=== PATIENT | male | born 1935 | race African-American/Black ===

== ENCOUNTER 2025-03-04 21:30 | Inpatient (IN) | payer MEDICARE, BC, OTHER ==
[~2025-03-04] VITALS: Ht 172.7 cm; Wt 71.4 kg
[2025-03-04 22:18] LABS: PLATELET COUNT (AUTO) 143 K/uL (150-450); RED BLOOD CELL COUNT(AUTO) 2.03 MIL/uL (4.50-5.90); RED CELL DISTRIBUTION WIDTH 17.8 % (11.5-14.5); WHITE BLOOD COUNT (AUTO) 10.4 K/uL (4.5-11.0)
[2025-03-04] MEDS: NOREPINEPHRINE 8 MG/0.9 % NACL 250 ML IV PRN (22:20)
[2025-03-04] MEDS: PIPERACILLIN/TAZO 3.375 GM/D5W 50 ML IV ONE (22:20)
[2025-03-04 22:23] LABS: CALCIUM, TOTAL 7.1 mg/dL (8.8-10.5); CREATININE 2.51 mg/dL (0.60-1.30); GLOMERULAR FILTR. RATE CALC 30 mL/min (>60); GLUCOSE,RANDOM 220 mg/dL (70-110); SODIUM SERUM 142 mmol/L (136-145); UREA NITROGEN, BLOOD 76 mg/dL (7-18)
[2025-03-04 22:29] LABS: ASPARTATE AMINOTRANSFERASE 45 U/L (15-37); TOTAL PROTEIN, SERUM 4.3 g/dL (6.4-8.2)
[2025-03-04 22:31] LABS: LACTIC ACID 1.9 mmol/L (0.4-2.0)
[2025-03-04 22:34] LABS: TROPONIN I-HIGH SENSITIVITY 17 ng/L (<76)
[2025-03-04] MEDS: SODIUM CHLORIDE 0.9% 3,000 ML IV ONE (22:39)
[2025-03-04 22:40] LABS: PLATELET COUNT (AUTO) 148 K/uL (150-450); RED BLOOD CELL COUNT(AUTO) 2.03 MIL/uL (4.50-5.90); RED CELL DISTRIBUTION WIDTH 18.3 % (11.5-14.5); WHITE BLOOD COUNT (AUTO) 11.7 K/uL (4.5-11.0)
[2025-03-04 22:43] LABS: BAND NEUTROPHILS % (MANUAL) 6 % (0-5); LYMPHOCYTES % (MANUAL) 14 % (22-44); MONOCYTES % (MANUAL) 11 % (2-9); SEGMENTED NEUTROPHILS % 69 % (40-70)
[2025-03-04 22:45] LABS: RBC MORPHOLOGY COMMENT NORMAL RBC MORPH
[2025-03-04] MEDS ORDERED: ONDANSETRON HCL 4 MG/2 ML VIAL IVP PRN (23:00)
[2025-03-04 23:19] LABS: APPEARANCE,URINE HAZY (CLEAR); GLUCOSE, URINE (UA) NEGATIVE (NEGATIVE); LEUKOCYTE ESTERASE ,URINE LARGE (NEGATIVE); NITRATE,URINE NEGATIVE (NEGATIVE); OCCULT BLOOD,URINE NEGATIVE (NEGATIVE); SPECIFIC GRAVITIY, URINE 1.018 (1.003-1.030)
[2025-03-04 23:29] LABS: % IRON SATURATION 54.3 % (30-44); IRON, SERUM 44.0 mcg/dL (50-175)
[2025-03-04 23:57] LABS: SQUAMOUS EPITHELIAL CELL,UR Few /LPF (None Seen)
[2025-03-05] VITALS (17 sets, daily range): BP systolic 93–128; BP diastolic 40–66; PULSE 61–92; RESP 18–28; TEMP 93.1–97.4; O2SAT 67–99
[2025-03-05] MEDS ORDERED: FLUO15CR41 TP (04:43)
[2025-03-05] MEDS ORDERED: HYDR-4808 PO (04:43)
[2025-03-05] MEDS ORDERED: FLUT15.812 NASAL (04:43)
[2025-03-05] MEDS ORDERED: METO-325 PO (04:43)
[2025-03-05] MEDS ORDERED: FINA-27 PO (04:43)
[2025-03-05] MEDS ORDERED: ISOS60TA77 PO (04:43)
[2025-03-05] MEDS ORDERED: ATOR40TA28 PO (04:43)
[2025-03-05] MEDS ORDERED: SITA25 PO (04:43)
[2025-03-05] MEDS ORDERED: CETI10TA77 PO (04:43)
[2025-03-05] MEDS ORDERED: FEBU40T PO (04:43)
[2025-03-05] MEDS ORDERED: HYDR50TA36 PO (04:43)
[2025-03-05] MEDS ORDERED: ALBU18HF12 IH (04:43)
[2025-03-05] MEDS ORDERED: TAMS0.4C94 PO (04:44)
[2025-03-05] MEDS ORDERED: TORS20TA5 PO (04:44)
[2025-03-05] MEDS ORDERED: DEXTROSE 50%-WATER 25 GM/50 ML SYRINGE IVP PRN (04:45)
[2025-03-05] MEDS: PANTOPRAZOLE SODIUM 80 MG in SODIUM CHLORIDE 0.9% 100 ML IV SCH (05:51)
[2025-03-05] MEDS: PANTOPRAZOLE SODIUM 40 MG/VIAL IVP ONE (05:51)
[2025-03-05] MEDS: CefTRIAXone 1 GM/DEXTROSE 50 ML IV SCH (05:51)
[2025-03-05] MEDS: AZITHROMYCIN 500 MG/NS 250 ML IV SCH (06:37)
[2025-03-05 07:00] LABS: PLATELET COUNT (AUTO) 104 K/uL (150-450); RED BLOOD CELL COUNT(AUTO) 3.49 MIL/uL (4.50-5.90); RED CELL DISTRIBUTION WIDTH 18.9 % (11.5-14.5); WHITE BLOOD COUNT (AUTO) 11.0 K/uL (4.5-11.0)
[2025-03-05 07:08] LABS: CALCIUM, TOTAL 7.1 mg/dL (8.8-10.5); CREATININE 2.68 mg/dL (0.60-1.30); GLOMERULAR FILTR. RATE CALC 27.0 mL/min (>60); GLUCOSE,RANDOM 204.0 mg/dL (70-110); SODIUM SERUM 141.0 mmol/L (136-145); UREA NITROGEN, BLOOD 80.0 mg/dL (7-18)
[2025-03-05] MEDS: TORSEMIDE 20 MG TABLET PO SCH ×2 (08:33→21:45)
[2025-03-05] MEDS: DOCUSATE SODIUM 100 MG CAPSULE PO SCH (08:33)
[2025-03-05] MEDS: ALBUMIN HUMAN 5%-12.5GM/250ML 250 ML IV ONE (11:21)
[2025-03-05] MEDS: NOREPINEPHRINE 8 MG/0.9 % NACL 250 ML IV PRN (12:34)
[2025-03-05 17:30] LABS: GLUCOMETER DEV NAME(LOC) ICUN.7; GLUCOSE,POINT OF CARE 114 MG/DL (70-110)
[2025-03-05] MEDS: TAMSULOSIN HCL 0.4 MG CAPSULE PO SCH (21:44)
[2025-03-05 22:30] LABS: GLUCOMETER DEV NAME(LOC) ICU.S7; GLUCOSE,POINT OF CARE 125 MG/DL (70-110)
[2025-03-05] MEDS: CHLORHEXIDINE GLUCONATE 2% TOWELETTE [2'S/6'S] TP SCH (23:19)
[2025-03-06] VITALS (13 sets, daily range): BP systolic 99–138; BP diastolic 39–65; PULSE 61–93; RESP 11–31; TEMP 96–97.8; O2SAT 75–100
[2025-03-06 00:35] LABS: GLUCOMETER DEV NAME(LOC) ICU.S7; GLUCOSE,POINT OF CARE 123 MG/DL (70-110)
[2025-03-06] MEDS ORDERED: SODIUM CHLORIDE 0.9% 250 ML IV ONE (04:56)
[2025-03-06 06:21] LABS: GLUCOMETER DEV NAME(LOC) ICUN.7; GLUCOSE,POINT OF CARE 135 MG/DL (70-110)
[2025-03-06 06:29] LABS: PLATELET COUNT (AUTO) 129 K/uL (150-450); RED BLOOD CELL COUNT(AUTO) 3.37 MIL/uL (4.50-5.90); RED CELL DISTRIBUTION WIDTH 19.6 % (11.5-14.5); WHITE BLOOD COUNT (AUTO) 10.7 K/uL (4.5-11.0)
[2025-03-06 06:40] LABS: ASPARTATE AMINOTRANSFERASE 30.0 U/L (15-37); CALCIUM, TOTAL 7.6 mg/dL (8.8-10.5); CREATININE 3.49 mg/dL (0.60-1.30); GLOMERULAR FILTR. RATE CALC 20.0 mL/min (>60); GLUCOSE,RANDOM 131.0 mg/dL (70-110); SODIUM SERUM 142.0 mmol/L (136-145); TOTAL PROTEIN, SERUM 5.6 g/dL (6.4-8.2); UREA NITROGEN, BLOOD 84.0 mg/dL (7-18)
[2025-03-06 07:34] LABS: ABG BASE EXCESS -4.1 mmol/L (-2.0-3.0); ABG CARBOXYHEMOGLOBIN 0.4 % (0.5-1.5); ABG HCO3 19.9 mmol/L (21.0-28.0); ABG METHEMOGLOBIN 0.3 % (0.0-1.5); ABG OXYGEN CONTENT 15.8 mL/dL (15.0-23.0); ABG OXYGEN SATURATION 99.5 % (94.0-98.0); ABG OXYHEMOGLOBIN 98.8 % (94.0-98.0); ABG TOTAL HEMOGLOBIN 10.6 G/dL (13.5-17.5); FRACTIONATED INSPIRED OXYGEN 100.0 % (21-100.0); SOURCE, BLOOD GAS ARTERIAL; TEMPERATURE, FAHRENHEIT, BG 96.1 FAHREN (96.0-98.6)
[2025-03-06] MEDS: FUROSEMIDE 20 MG/2 ML VIAL IVP ONE (08:03)
[2025-03-06 09:14] LABS: ABG A-A DIFF O2 239.1 mmHg (10-20.0); ABG PCO2 92 mmHg (32.0-48.0); ABG PH 7.065 (7.350-7.450); ALLEN TEST, BLOOD GAS Positive; FLOW, BLOOD GAS 15.00 L/min (0.00-15.00); O2 DEVICE,BLOOD GAS NON REBREATHER (ROOM AIR); PO2, ARTERIAL BG 385.4 mmHg (83.0-108.0); SITE, BLOOD GAS LFT RADIAL
[2025-03-06] MEDS ORDERED: LIDOCAINE 1%/EPI 1:200,000/PF 30 ML VIAL ONE (10:27)
[2025-03-06 11:36] LABS: LACTATE DEHYDROGENASE 326.0 U/L (85-227)
[2025-03-06 11:38] LABS: SPECIMENTYPE,BODY FLUID PLV
[2025-03-06 13:24] LABS: APPEARANCE,SPUN,BODY FLUID HAZY (CLEAR); APPEARANCE,UNSPUN,BODY FLUID BLOODY (CLEAR); COLOR,BODY FLUID RED (LT YELLOW); TOTAL VOLUME,BODY FLUID 20 mL; WBC, BODY FLUID 69 /cu. mm.
[2025-03-06 13:26] LABS: GLUCOMETER DEV NAME(LOC) ICU.S7; GLUCOSE,POINT OF CARE 128 MG/DL (70-110)
[2025-03-06 13:28] LABS: BASOPHILS,BODY FLUID 0 % (1-5); EOSINOPHILS,BF (ANAL) 0 %; LYMPHOCYTES,BODY FLUID 33 %; MONOCYTES,BODY FLUID 4 %; NEUTROPHILS,BODY FLUID 62 %; PH, BODY FLUID 8.0 (6.8-7.6)
[2025-03-06] MEDS: FUROSEMIDE 40 MG/4 ML VIAL IVP SCH (15:05)
[2025-03-06] MEDS: ACETAMINOPHEN 1000 MG/ISO-OSM 100 ML IV ONE (15:06)
[2025-03-06] MEDS ORDERED: FUROSEMIDE 100 MG/10 ML VIAL IVP SCH (16:00)
[2025-03-06 17:06] LABS: ABG BASE EXCESS 3.3 mmol/L (-2.0-3.0); ABG CARBOXYHEMOGLOBIN 0.1 % (0.5-1.5); ABG HCO3 26.2 mmol/L (21.0-28.0); ABG METHEMOGLOBIN 0.0 % (0.0-1.5); ABG OXYGEN CONTENT 14.5 mL/dL (15.0-23.0); ABG OXYGEN SATURATION 99.2 % (94.0-98.0); ABG OXYHEMOGLOBIN 99.1 % (94.0-98.0); ABG TOTAL HEMOGLOBIN 10.1 G/dL (13.5-17.5); FRACTIONATED INSPIRED OXYGEN 60.0 % (21-100.0); PO2, ARTERIAL BG 196.7 mmHg (83.0-108.0); SOURCE, BLOOD GAS ARTERIAL; TEMPERATURE, FAHRENHEIT, BG 96.5 FAHREN (96.0-98.6)
[2025-03-06 17:07] LABS: ABG A-A DIFF O2 150.0 mmHg (10-20.0); ABG PCO2 75 mmHg (32.0-48.0); ABG PH 7.227 (7.350-7.450); ALLEN TEST, BLOOD GAS Positive; O2 DEVICE,BLOOD GAS BIPAP (ROOM AIR); SET RATE, BG 20.0 min.; SITE, BLOOD GAS LFT RADIAL
[2025-03-06 17:08] LABS: INSPIRATORY TIME, BG 0.9 SEC; PATIENT RATE, BG 20.0 min.; SPONTANEOUS VT, BG 275 ml
[2025-03-06 18:40] LABS: GLUCOMETER DEV NAME(LOC) ICU.S7; GLUCOSE,POINT OF CARE 132 MG/DL (70-110)
[2025-03-07] VITALS (9 sets, daily range): BP systolic 109–127; BP diastolic 43–68; PULSE 61–94; RESP 12–27; TEMP 97.9–99.3; O2SAT 99–100
[2025-03-07] MEDS ORDERED: HEPARIN SODIUM,PORCINE 5,000 UNITS/ML VIAL SQ SCH
[2025-03-07 00:31] LABS: GLUCOMETER DEV NAME(LOC) ICUN.7; GLUCOSE,POINT OF CARE 115 MG/DL (70-110)
[2025-03-07 06:26] LABS: PLATELET COUNT (AUTO) 114 K/uL (150-450); RED BLOOD CELL COUNT(AUTO) 2.87 MIL/uL (4.50-5.90); RED CELL DISTRIBUTION WIDTH 18.7 % (11.5-14.5); WHITE BLOOD COUNT (AUTO) 8.0 K/uL (4.5-11.0)
[2025-03-07 07:09] LABS: TROPONIN I-HIGH SENSITIVITY 141 ng/L (<76)
[2025-03-07 08:00] LABS: ASPARTATE AMINOTRANSFERASE 25.0 U/L (15-37); CALCIUM, TOTAL 7.6 mg/dL (8.8-10.5); CREATININE 4.38 mg/dL (0.60-1.30); GLOMERULAR FILTR. RATE CALC 16.0 mL/min (>60); GLUCOSE,RANDOM 89.0 mg/dL (70-110); SODIUM SERUM 142.0 mmol/L (136-145); TOTAL PROTEIN, SERUM 4.8 g/dL (6.4-8.2); UREA NITROGEN, BLOOD 88.0 mg/dL (7-18)
[2025-03-07 08:28] LABS: ABG BASE EXCESS 4.4 mmol/L (-2.0-3.0); ABG CARBOXYHEMOGLOBIN 0.6 % (0.5-1.5); ABG HCO3 27.6 mmol/L (21.0-28.0); ABG METHEMOGLOBIN 0.3 % (0.0-1.5); ABG OXYGEN CONTENT 12.6 mL/dL (15.0-23.0); ABG OXYGEN SATURATION 99.1 % (94.0-98.0); ABG OXYHEMOGLOBIN 98.2 % (94.0-98.0); ABG PCO2 65 mmHg (32.0-48.0); ABG PH 7.295 (7.350-7.450); ABG TOTAL HEMOGLOBIN 8.9 G/dL (13.5-17.5); FRACTIONATED INSPIRED OXYGEN 40.0 % (21-100.0); PO2, ARTERIAL BG 148.5 mmHg (83.0-108.0); SOURCE, BLOOD GAS ARTERIAL; TEMPERATURE, FAHRENHEIT, BG 98.6 FAHREN (96.0-98.6)
[2025-03-07 08:29] LABS: ABG A-A DIFF O2 62.0 mmHg (10-20.0); ALLEN TEST, BLOOD GAS Positive; INSPIRATORY TIME, BG 0.9 SEC; O2 DEVICE,BLOOD GAS BIPAP (ROOM AIR); PATIENT RATE, BG 20.0 min.; SET RATE, BG 20.0 min.; SITE, BLOOD GAS LFT RADIAL; SPONTANEOUS VT, BG 450 ml
[2025-03-07] MEDS: ETHYL ALCOHOL 62% ANTISEPTIC NASAL SANITIZER 0.6 ML AMPUL NASAL SCH (08:29)
[2025-03-07] MEDS: FUROSEMIDE 40 MG/4 ML VIAL IVP SCH (08:53)
[2025-03-07 10:49] LABS: ABG A-A DIFF O2 18.0 mmHg (10-20.0); ABG BASE EXCESS 2.1 mmol/L (-2.0-3.0); ABG CARBOXYHEMOGLOBIN 0.4 % (0.5-1.5); ABG HCO3 25.8 mmol/L (21.0-28.0); ABG METHEMOGLOBIN 0.0 % (0.0-1.5); ABG OXYGEN CONTENT 12.5 mL/dL (15.0-23.0); ABG OXYGEN SATURATION 99.3 % (94.0-98.0); ABG OXYHEMOGLOBIN 98.9 % (94.0-98.0); ABG PCO2 62 mmHg (32.0-48.0); ABG PH 7.286 (7.350-7.450); ABG TOTAL HEMOGLOBIN 8.7 G/dL (13.5-17.5); ALLEN TEST, BLOOD GAS Positive; FLOW, BLOOD GAS 4.00 L/min (0.00-15.00); FRACTIONATED INSPIRED OXYGEN 36.0 % (21-100.0); O2 DEVICE,BLOOD GAS CANNULA (ROOM AIR); PO2, ARTERIAL BG 167.1 mmHg (83.0-108.0); SITE, BLOOD GAS LFT RADIAL; SOURCE, BLOOD GAS ARTERIAL; TEMPERATURE, FAHRENHEIT, BG 98.6 FAHREN (96.0-98.6)
[2025-03-07 13:28] LABS: ABG A-A DIFF O2 37.2 mmHg (10-20.0); ABG BASE EXCESS 3.0 mmol/L (-2.0-3.0); ABG CARBOXYHEMOGLOBIN 0.5 % (0.5-1.5); ABG HCO3 26.6 mmol/L (21.0-28.0); ABG METHEMOGLOBIN 0.1 % (0.0-1.5); ABG OXYGEN CONTENT 11.3 mL/dL (15.0-23.0); ABG OXYGEN SATURATION 96.4 % (94.0-98.0); ABG OXYHEMOGLOBIN 95.8 % (94.0-98.0); ABG PCO2 60 mmHg (32.0-48.0); ABG PH 7.307 (7.350-7.450); ABG TOTAL HEMOGLOBIN 8.3 G/dL (13.5-17.5); ALLEN TEST, BLOOD GAS Positive; FLOW, BLOOD GAS 2.00 L/min (0.00-15.00); FRACTIONATED INSPIRED OXYGEN 28.0 % (21-100.0); O2 DEVICE,BLOOD GAS CANNULA (ROOM AIR); PO2, ARTERIAL BG 91.0 mmHg (83.0-108.0); SITE, BLOOD GAS LFT RADIAL; SOURCE, BLOOD GAS ARTERIAL; TEMPERATURE, FAHRENHEIT, BG 99.6 FAHREN (96.0-98.6)
[2025-03-07 13:36] LABS: GLUCOMETER DEV NAME(LOC) ICUN.7; GLUCOSE,POINT OF CARE 63 MG/DL (70-110)
[2025-03-07 14:07] LABS: GLUCOSE, BODY FLUID,REF 55.0 mg/dL; LDH,BODY FLUID,REF 167.0 IU/L; TOTAL PROTEIN,BODY FLUID,REF 7.7 g/dL
[2025-03-07 18:15] LABS: GLUCOMETER DEV NAME(LOC) ICUN.7; GLUCOSE,POINT OF CARE 113 MG/DL (70-110)
[2025-03-08] VITALS (9 sets, daily range): BP systolic 127–157; BP diastolic 43–64; PULSE 61–74; RESP 16–28; TEMP 97.3–99.3; O2SAT 96–100
[2025-03-08 04:41] LABS: GLUCOMETER DEV NAME(LOC) ICUN.7; GLUCOSE,POINT OF CARE 74 MG/DL (70-110)
[2025-03-08 06:50] LABS: GLUCOMETER DEV NAME(LOC) ICUN.7; GLUCOSE,POINT OF CARE 124 MG/DL (70-110)
[2025-03-08] MEDS: ACETAMINOPHEN 325 MG TABLET PO PRN (08:35)
[2025-03-08 09:28] LABS: PLATELET COUNT (AUTO) 127 K/uL (150-450); RED BLOOD CELL COUNT(AUTO) 3.18 MIL/uL (4.50-5.90); RED CELL DISTRIBUTION WIDTH 18.4 % (11.5-14.5); WHITE BLOOD COUNT (AUTO) 9.4 K/uL (4.5-11.0)
[2025-03-08 09:29] LABS: CALCIUM, TOTAL 8.0 mg/dL (8.8-10.5); CREATININE 4.98 mg/dL (0.60-1.30); GLOMERULAR FILTR. RATE CALC 13.0 mL/min (>60); GLUCOSE,RANDOM 98.0 mg/dL (70-110); SODIUM SERUM 141.0 mmol/L (136-145); UREA NITROGEN, BLOOD 94.0 mg/dL (7-18)
[2025-03-08 10:37] LABS: BAND NEUTROPHILS % (MANUAL) 3 % (0-5); LYMPHOCYTES % (MANUAL) 23 % (22-44); RBC MORPHOLOGY COMMENT NORMAL RBC MORPH; SEGMENTED NEUTROPHILS % 74 % (40-70)
[2025-03-08 11:56] LABS: GLUCOMETER DEV NAME(LOC) ICU.S7; GLUCOSE,POINT OF CARE 149 MG/DL (70-110)
[2025-03-08] MEDS: INSULIN LISPRO 100 UNITS/ML SQ PRN (12:29)
[2025-03-08] MEDS: *CLINICAL-LEVOFLOXACIN IVPB DOSING CLINICAL ONE (14:53)
[2025-03-08] MEDS ORDERED: SODIUM CHLORIDE 0.9% 250 ML IV ONE (16:24)
[2025-03-08] MEDS: LEVOFLOXACIN 750 MG/D5% WATER 150 ML IV ONE (16:38)
[2025-03-08 18:05] LABS: GLUCOMETER DEV NAME(LOC) ICUN.7; GLUCOSE,POINT OF CARE 105 MG/DL (70-110)
[2025-03-09] VITALS (14 sets, daily range): BP systolic 99–175; BP diastolic 50–69; PULSE 65–85; RESP 18–27; TEMP 97.7–100.3; O2SAT 97–100
[2025-03-09 00:25] LABS: GLUCOMETER DEV NAME(LOC) ICUN.7; GLUCOSE,POINT OF CARE 94 MG/DL (70-110)
[2025-03-09 05:55] LABS: GLUCOMETER DEV NAME(LOC) ICU.S7; GLUCOSE,POINT OF CARE 86 MG/DL (70-110)
[2025-03-09 06:23] LABS: CALCIUM, TOTAL 7.6 mg/dL (8.8-10.5); CREATININE 5.02 mg/dL (0.60-1.30); GLOMERULAR FILTR. RATE CALC 13.0 mL/min (>60); GLUCOSE,RANDOM 88.0 mg/dL (70-110); SODIUM SERUM 139.0 mmol/L (136-145); UREA NITROGEN, BLOOD 94.0 mg/dL (7-18)
[2025-03-09 06:27] LABS: PLATELET COUNT (AUTO) 125 K/uL (150-450); RED BLOOD CELL COUNT(AUTO) 2.78 MIL/uL (4.50-5.90); RED CELL DISTRIBUTION WIDTH 17.9 % (11.5-14.5); WHITE BLOOD COUNT (AUTO) 8.8 K/uL (4.5-11.0)
[2025-03-09] MEDS: LACTULOSE 20 GM/30 ML SOLUTION UDCUP PO PRN (08:43)
[2025-03-09] MEDS ORDERED: GuaiFENesin/D-METHORPHAN [SUGAR-FREE] 200-20MG/10 ML SYRUP UDCUP PO PRN (10:30)
[2025-03-09] MEDS: EPOETIN ALFA 10,000 UNITS/ML VIAL SQ ONE (12:02)
[2025-03-09] MEDS: BENZONATATE 100 MG CAPSULE PO PRN (19:29)
[2025-03-09] MEDS: MELATONIN 5 MG TABLET PO PRN (20:44)
[2025-03-10] VITALS (14 sets, daily range): BP systolic 123–158; BP diastolic 53–70; PULSE 60–84; RESP 16–24; TEMP 97.5–98.1; O2SAT 97–100
[2025-03-10 05:40] LABS: GLUCOMETER DEV NAME(LOC) 5N.1D; GLUCOSE,POINT OF CARE 177 MG/DL (70-110)
[2025-03-10 05:40] LABS: GLUCOMETER DEV NAME(LOC) 5N.1D; GLUCOSE,POINT OF CARE 124 MG/DL (70-110)
[2025-03-10 06:44] LABS: PLATELET COUNT (AUTO) 132 K/uL (150-450); RED BLOOD CELL COUNT(AUTO) 3.09 MIL/uL (4.50-5.90); RED CELL DISTRIBUTION WIDTH 18.7 % (11.5-14.5); WHITE BLOOD COUNT (AUTO) 8.0 K/uL (4.5-11.0)
[2025-03-10 07:06] LABS: CALCIUM, TOTAL 7.8 mg/dL (8.8-10.5); CREATININE 5.22 mg/dL (0.60-1.30); GLOMERULAR FILTR. RATE CALC 13.0 mL/min (>60); GLUCOSE,RANDOM 99.0 mg/dL (70-110); SODIUM SERUM 139.0 mmol/L (136-145); UREA NITROGEN, BLOOD 97.0 mg/dL (7-18)
[2025-03-10 08:26] LABS: GLUCOMETER DEV NAME(LOC) 5S.1E; GLUCOSE,POINT OF CARE 113 MG/DL (70-110)
[2025-03-10 08:26] LABS: GLUCOMETER DEV NAME(LOC) 5S.1E; GLUCOSE,POINT OF CARE 107 MG/DL (70-110)
[2025-03-10 12:30] LABS: GLUCOMETER DEV NAME(LOC) 5S.1E; GLUCOSE,POINT OF CARE 122 MG/DL (70-110)
[2025-03-10] MEDS: LEVOFLOXACIN 500 MG/D5% WATER 100 ML IV SCH (16:07)
[2025-03-10 17:40] LABS: CREATININE 5.26 mg/dL (0.60-1.30); GLOMERULAR FILTR. RATE CALC 13.0 mL/min (>60); UREA NITROGEN, BLOOD 98.0 mg/dL (7-18)
[2025-03-10 18:11] LABS: GLUCOMETER DEV NAME(LOC) 5S.1E; GLUCOSE,POINT OF CARE 105 MG/DL (70-110)
[2025-03-11 00:02] VITALS: BP 153/83; PULSE 63; RESP 18; TEMP 98.1; O2SAT 95
[2025-03-11 00:05] LABS: GLUCOMETER DEV NAME(LOC) 5N.1D; GLUCOSE,POINT OF CARE 118 MG/DL (70-110)
[2025-03-11 00:05] LABS: GLUCOMETER DEV NAME(LOC) 5N.1D; GLUCOSE,POINT OF CARE 103 MG/DL (70-110)
[2025-03-11 02:31] VITALS: PULSE 68; RESP 19; O2SAT 98
[2025-03-11 04:39] VITALS: BP 160/51; PULSE 75; RESP 17; TEMP 97.5; O2SAT 100
[2025-03-11] MEDS: METOPROLOL SUCCINATE 50 MG ER TABLET PO SCH (06:34)
[2025-03-11 07:27] LABS: PLATELET COUNT (AUTO) 127 K/uL (150-450); RED BLOOD CELL COUNT(AUTO) 3.21 MIL/uL (4.50-5.90); RED CELL DISTRIBUTION WIDTH 18.8 % (11.5-14.5); WHITE BLOOD COUNT (AUTO) 7.3 K/uL (4.5-11.0)
[2025-03-11 07:34] LABS: CALCIUM, TOTAL 8.0 mg/dL (8.8-10.5); CREATININE 5.1 mg/dL (0.60-1.30); GLOMERULAR FILTR. RATE CALC 13.0 mL/min (>60); GLUCOSE,RANDOM 89.0 mg/dL (70-110); SODIUM SERUM 139.0 mmol/L (136-145); UREA NITROGEN, BLOOD 95.0 mg/dL (7-18)
[2025-03-11 07:52] VITALS: BP 146/65; PULSE 74; RESP 18; TEMP 98; O2SAT 97
[2025-03-11 08:01] LABS: PHOSPHORUS 5.2 mg/dL (2.5-4.9)
[2025-03-11] MEDS: FINASTERIDE 5 MG TABLET PO SCH (08:43)
[2025-03-11] MEDS: ATORVASTATIN CALCIUM 40 MG TABLET PO SCH (08:44)
[2025-03-11 12:00] VITALS: BP 163/64; PULSE 80; RESP 19; TEMP 97.9; O2SAT 100
[2025-03-11 16:00] VITALS: BP 157/65; PULSE 69; RESP 18; TEMP 97.5; O2SAT 98
[2025-03-11 20:11] LABS: GLUCOMETER DEV NAME(LOC) 5N.1D; GLUCOSE,POINT OF CARE 99 MG/DL (70-110)
[2025-03-11 20:11] LABS: GLUCOMETER DEV NAME(LOC) 5S.1E; GLUCOSE,POINT OF CARE 123 MG/DL (70-110)
== END 2025-03-11 17:45 | disposition short-term general hospital (02) | DRG 871 ==
LOC: EMS 21:30 → EDH 22:59 → ICU 03-05 07:59 → 5S 03-09 06:30
PROVIDERS: ADMIT Internal Medicine; ATTEND Internal Medicine
PROC: 30233N1 Transfusion of Nonautologous Red Blood Cells into Peripheral Vein, Percutaneous Approach (ICD-10-PCS; 2025-03-04)
PROC: 0W9B30Z Drainage of Left Pleural Cavity with Drainage Device, Percutaneous Approach (ICD-10-PCS; principal; 2025-03-06)
PROC: 0W9B3ZZ Drainage of Left Pleural Cavity, Percutaneous Approach (ICD-10-PCS; 2025-03-06)
PROC: 5A09357 Assistance with Respiratory Ventilation, Less than 24 Consecutive Hours, Continuous Positive Airway Pressure (ICD-10-PCS; 2025-03-06)
PROC: 5A09357 Assistance with Respiratory Ventilation, Less than 24 Consecutive Hours, Continuous Positive Airway Pressure (ICD-10-PCS; 2025-03-07)
PROC: 5A09357 Assistance with Respiratory Ventilation, Less than 24 Consecutive Hours, Continuous Positive Airway Pressure (ICD-10-PCS; 2025-03-09)
PROC: 5A09357 Assistance with Respiratory Ventilation, Less than 24 Consecutive Hours, Continuous Positive Airway Pressure (ICD-10-PCS; 2025-03-10)
DX: A41.9 Sepsis, unspecified organism (principal); G93.41 Metabolic encephalopathy; J96.21 Acute and chronic respiratory failure with hypoxia; J96.22 Acute and chronic respiratory failure with hypercapnia; N17.0 Acute kidney failure with tubular necrosis; R65.21 Severe sepsis with septic shock; J94.2 Hemothorax; R57.9 Shock, unspecified; J90 Pleural effusion, not elsewhere classified; C85.90 Non-Hodgkin lymphoma, unspecified, unspecified site; N39.0 Urinary tract infection, site not specified; I44.2 Atrioventricular block, complete; N18.4 Chronic kidney disease, stage 4 (severe); I13.0 Hypertensive heart and chronic kidney disease with heart failure and stage 1 through stage 4 chronic kidney disease, or unspecified chronic kidney disease; D63.1 Anemia in chronic kidney disease; E11.22 Type 2 diabetes mellitus with diabetic chronic kidney disease; F03.90 Unspecified dementia, unspecified severity, without behavioral disturbance, psychotic disturbance, mood disturbance, and anxiety; G40.909 Epilepsy, unspecified, not intractable, without status epilepticus; I34.0 Nonrheumatic mitral (valve) insufficiency; D62 Acute posthemorrhagic anemia; E87.4 Mixed disorder of acid-base balance; I50.42 Chronic combined systolic (congestive) and diastolic (congestive) heart failure; J98.11 Atelectasis; E78.5 Hyperlipidemia, unspecified; N40.0 Benign prostatic hyperplasia without lower urinary tract symptoms; I48.91 Unspecified atrial fibrillation; I45.9 Conduction disorder, unspecified; I87.2 Venous insufficiency (chronic) (peripheral); Z79.899 Other long term (current) drug therapy; Z87.891 Personal history of nicotine dependence; Z95.0 Presence of cardiac pacemaker
CPT/HCPCS: 32555; 70450; 71045; 71250; 74176; 75989; 76942; 80048; 80053; 80076; 81001; 82140; 82271; 82465; 82565; 82805; 82945; 82962; 83010; 83036; 83540; 83550; 83605; 83615; 83735; 83880; 83986; 84100; 84157; 84443; 84484; 84520; 85007; 85014; 85018; 85025; 85027; 85045; 85610; 85730; 86850; 86900; 86901; 86923; 87015; 87040; 87075; 87077; 87081; 87086; 87101; 87186; 87205; 87206; 88108; 88312; 89051; 92526; 92610; 93005; 93306; 93970; 94660; 96365; 96368; 97110; 97116; 97163; 97530; 99291; G0378; J0131; J0456; J0696; J0885; J1938; J1956; J2470; J2543; J3490; J7050; P9016; P9041; 36415-L1; 36415-TC; 82803-TC; 87070